=== PATIENT | male | born 1995 | race Two or more races ===

== ENCOUNTER 2017-06-14 19:16 | Emergency (ER) | payer OTHER ==
[~2017-06-14] VITALS: Ht 180.3 cm; Wt 93.7 kg
[~2017-06-14 19:16] MED LIST: MOTRIN800 MG PO; NAPROSYN500 MG PO
[2017-06-14 20:09] LABS: APPEARANCE CLEAR ((CLEAR)); BILIRUBIN NEGATIVE; BLOOD NEGATIVE; COLOR YELLOW ((YELLOW)); GLUCOSE (STRIP) NEGATIVE; KETONES NEGATIVE; LEUKOCYTES NEGATIVE; NITRITE NEGATIVE; PROTEIN (STRIP) NEGATIVE; SPECIFIC GRAVITY 1.023 (1.000-1.030)
[2017-06-14 20:19] LABS: HEMATOCRIT 49.1 % (38.0-50.0); HEMOGLOBIN 16.9 G/DL (12.5-16.6); MCH 29.4 PG (29.0-34.0); MCHC 34.4 G/DL (30.0-36.0); MCV 85.4 FL (86-99); PLATELET COUNT 227 K/uL (156-360); RBC DIS.WIDTH-CV 13.3 % (11.8-14.6); RBC DIS.WIDTH-SD 41.8 % (39-53); RED BLOOD COUNT 5.75 M/uL (4.00-5.50); WHITE BLOOD COUNT 7.4 K/uL (4.1-10.2)
[2017-06-14 20:30] LABS: ALBUMIN 4.5 g/dL (3.2-4.8); CHLORIDE 104 mEq/L (99-109); POTASSIUM 3.4 mEq/L (3.7-5.4); SODIUM 137 mEq/L (136-147)
[2017-06-14 20:33] LABS: GLUCOSE 97 mg/dL (70-99); TOTAL PROTEIN 7.6 g/dL (6.4-8.3)
[2017-06-14 20:34] LABS: TOTAL BILIRUBIN 0.7 mg/dL (0.0-1.0)
[2017-06-14 20:35] LABS: SERUM ETHYL ALCOHOL < 10 mg/dL
[2017-06-14 20:36] LABS: ALKALINE PHOSPHATASE 84 IU/L (3-129); CREATININE 1.3 mg/dL (0.6-1.3); GFR ESTIMATE (CALCULATED) > 59 mL/min/ (58.99-99999)
[2017-06-14 20:37] LABS: UREA NITROGEN (BUN) 17 mg/dL (9-23)
[2017-06-14 20:38] LABS: AST (GOT) 37 IU/L (2-34)
[2017-06-14 20:39] LABS: ALT (GPT) 31 IU/L (3-49)
[2017-06-14 20:45] VITALS: BP 119/84
[2017-06-14 20:58] LABS: BENZODIAZEPINES, URINE SCREEN Negative (200 ng/mL)
== END 2017-06-14 21:52 | disposition home or self-care (01) ==
LOC: EME 19:16
PROVIDERS: Emergency Medicine
DX: F32.9 Major depressive disorder, single episode, unspecified (principal); F43.21 Adjustment disorder with depressed mood; Z63.0 Problems in relationship with spouse or partner
CPT/HCPCS: 80053; 80306 90; 81003; 85027; 90837; 99281; 99285; G0480

== ENCOUNTER 2017-08-11 19:06 | Emergency (ER) | payer SELFPAY ==
[~2017-08-11] VITALS: Ht 180.3 cm; Wt 96.2 kg
[2017-08-11] MEDS ORDERED: KEFLEX500 MG PO (20:10)
[2017-08-11] MEDS ORDERED: PREDNISONE10 M1 PO (20:10)
[2017-08-11] MEDS ORDERED: ATARAX,VISTARIL50 MG PO (20:10)
[2017-08-11 20:36] VITALS: BP 142/76
== END 2017-08-11 20:37 | disposition home or self-care (01) ==
LOC: EME 19:06
DX: L25.9 Unspecified contact dermatitis, unspecified cause (principal); Z87.891 Personal history of nicotine dependence
CPT/HCPCS: 99281; 99284; J7512; Q0177